=== PATIENT | male | born 2005 | race African-American/Black ===

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

== ENCOUNTER 2023-02-04 19:58 | Emergency (ER) | payer OTHER ==
[~2023-02-04] VITALS: Ht 172.7 cm; Wt 89.8 kg
[2023-02-04 20:01] VITALS: BP 142/77; TEMP 98.1
[2023-02-04 20:26] LABS: PLATELET COUNT 286 K/uL (142-355)
[2023-02-04 20:45] LABS: POTASSIUM 3.9 mmol/L (3.6-5.2)
== END 2023-02-04 22:54 | disposition home or self-care (01) ==
LOC: ED 19:58
PROVIDERS: Family Medicine
DX: K57.90 Diverticulosis of intestine, part unspecified, without perforation or abscess without bleeding (principal); N45.1 Epididymitis
CPT/HCPCS: 36415; 80053; 81002; 85027; 87490; 96374; 99284; J0696; J2270; J2405